=== PATIENT | male | born 2000 | race Two or more races ===

== ENCOUNTER 2024-08-08 18:17 | Emergency (ER) | payer MEDICAID ==
[~2024-08-08] VITALS: Ht 162.6 cm; Wt 74.8 kg
[2024-08-08 18:41] LABS: BASOPHILS % (AUTO) 0.5 % (0.0-2.0); EOSINOPHILS # (AUTO) 0.7 K/uL (0.0-0.7); EOSINOPHILS % (AUTO) 7.5 % (0.0-6.0); HEMATOCRIT 46 % (39-51); HEMOGLOBIN 15.5 g/dL (13.5-17.5); LYMPHOCYTES # (AUTO) 3.6 K/uL (0.8-4.8); LYMPHOCYTES % (AUTO) 38.2 % (20.0-44.0); MEAN CORPUSCULAR HEMOGLOBIN 32 PG (26.0-33.0); MEAN CORPUSCULAR HGB CONC 34 g/dl (31.0-36.0); MEAN CORPUSCULAR VOLUME 97 fL (80-96); MONOCYTES # (AUTO) 0.6 K/uL (0.1-1.30); MONOCYTES % (AUTO) 6.6 % (2.0-12.0); NEUTROPHILS # (AUTO) 4.5 K/uL (1.8-8.9); NEUTROPHILS % (AUTO) 47.2 % (43.0-81.0); PLATELET COUNT (AUTO) 492 K/uL (150-450); RED BLOOD CELL COUNT(AUTO) 4.77 MIL/uL (4.5-6.0); RED CELL DISTRIBUTION WIDTH 13.5 % (11.5-15.0); WHITE BLOOD COUNT (AUTO) 9.5 K/uL (4.3-11.0)
[2024-08-08 18:43] LABS: APPEARANCE,URINE Clear (CLEAR); BILIRUBIN,URINE Negative (NEGATIVE); BLOOD, URINE Negative Ery/uL (NEGATIVE); COLOR,URINE YELLOW (YELLOW); KETONES,URINE Negative (NEGATIVE); LEUKOCYTE ESTERASE ,URINE Negative (NEGATIVE); NITRITE, URINE Negative (NEGATIVE); PROTEIN,URINE Negative (NEGATIVE); UGLUCOSE Negative (NEGATIVE); UROBILINOGEN,URINE 0.2 EU/dL (0.2)
[2024-08-08 18:44] VITALS: BP 126/83; TEMP 97.8; O2SAT 96
[2024-08-08 18:52] LABS: AMPHETAMINE, URINE NEGATIVE (NEGATIVE); BARBITURATE, URINE NEGATIVE (NEGATIVE); BENZODIAZEPINE, URINE NEGATIVE (NEGATIVE); CANNABINOID, URINE NEGATIVE (NEGATIVE); COCCAINE, URINE NEGATIVE (NEGATIVE); OPIATE, URINE NEGATIVE (NEGATIVE); PHENCYCLIDINE SCREEN,URINE NEGATIVE (NEGATIVE)
[2024-08-08 18:53] LABS: CALCIUM, SERUM 9.5 mg/dL (8.5-10.1); CARBON DIOXIDE 29 mmol/L (21-32); CHLORIDE 101 mmol/L (98-107); CREATININE 0.9 mg/dL (0.6-1.3); GLUCOSE 111 mg/dL (74-106); POTASSIUM 3.6 mmol/L (3.5-5.1); SODIUM SERUM 139 mmol/L (136-145); UREA NITROGEN, BLOOD 8 mg/dL (7-18)
[2024-08-08 19:06] LABS: ACETAMINOPHEN <10 ug/ml (10-30); ALANINE AMINOTRANSFERASE 146 U/L (12-78); ALBUMIN 4.3 g/dL (3.4-5.0); ALCOHOL, BLOOD 195 mg/dL (0-10); ALKALINE PHOSPHATASE 130 U/L (46-116); ASPARTATE AMINOTRANSFERASE 85 U/L (15-37); BILIRUBIN,DIRECT 0.1 mg/dL (0.0-0.2); BILIRUBIN,TOTAL 0.3 mg/dL (0.2-1.0); SALICYLATE 6.9 mg/dL (2.8-20.0); TOTAL PROTEIN, SERUM 8.2 g/dL (6.4-8.2)
[2024-08-08] MEDS: IV NS 0.9% 1,000 ML BAG IV ONE (19:17)
[2024-08-08 20:24] LABS: SITE, VBG RIGHT RADIAL; VBG BASE EXCESS -5.9 mmol/L (-2.0-3.0); VBG COHb 0.3 % (0.5-1.5); VBG HCO3 18.4 mmol/L (22.0-29.0); VBG MetHb 0.2 % (0.5-1.5); VBG O2Hb 95.3 % (0-79); VBG OXYGEN SATURATION 95.8 % (60.0-85.0); VBG PCO2 33.3 mmHg (38.0-54.0); VBG PH 7.361 (7.320-7.430); VBG PO2 87.6 mmHg (23.0-48.0); VBG TOTAL HEMOGLOBIN 14.8 G/dL (13.5-17.5)
== END 2024-08-08 21:19 | disposition home or self-care (01) ==
LOC: ER 20:13
DX: F10.10 Alcohol abuse, uncomplicated (principal); T39.011A Poisoning by aspirin, accidental (unintentional), initial encounter; R00.0 Tachycardia, unspecified; Y90.6 Blood alcohol level of 120-199 mg/100 ml; Z20.822 Contact with and (suspected) exposure to COVID-19; Y92.89 Other specified places as the place of occurrence of the external cause
CPT/HCPCS: 99284; 96360; 93005; 82803 ×2; 85025; 80048; 80076; 81003; 36415; 36600; 87426; 80143; 80320; 80307; J7030; G0480